=== PATIENT | female | born 1945 | race Caucasian/White ===

== ENCOUNTER 2017-03-07 07:42 | Inpatient (IN) | payer OTHER ==
[2017-03-07] VITALS (44 sets, daily range): BP systolic 73–117; BP diastolic 46–88
[~2017-03-07] VITALS: Ht 162.6 cm; Wt 51.3 kg
--- NOTE | ~2017-03-07 | HC ---
[facility] [place] [address] CONSULTATION Name: SERA MILNER Mike Room #: 438-P ADM IN M.R.#: [id number] Admission: 03/07/17 Attend Phys: Kailash Hale DO Discharge: Date of : 41 Report #: [id number] THIS REPORT FOR: //name// CC: CUONG Hale HISTORY OF PRESENT ILLNESS: A 71-year-old white woman transferred from [facility], where she presents with profound weakness, fever at 101.7, mild lactic acidosis, findings by CT scan compatible with pyelonephritis, and abnormal urinalysis compatible with pyelonephritis, significant leukocytosis present at that time. She is started on Zosyn and vancomycin and today's white blood cell count is better. She is improved. PAST MEDICAL HISTORY: History of hospitalizations at [facility] some 10 years ago with perforated bowel and peritonitis, requiring mechanical ventilation. She had exploratory laparotomy, drainage of abscess and temporary colostomy. Abdominal wall hernia repair. Recent right hip fracture, requiring open reduction and internal fixation. DRUG ALLERGIES: None listed. MEDICATIONS: The patient is currently on treatment with aspirin, levothyroxine, acetaminophen p.r.n., metformin, vancomycin 500 mg IV every 12 hours, Zosyn 3.375 g IV every 6 hours, insulin lispro per sliding scale, p.r.n. glucose and glucagon. SOCIAL HISTORY: , living at home with and daughter. No tobacco. No alcohol. FAMILY HISTORY: Noncontributory. REVIEW OF SYSTEMS: As above and see H and P. PHYSICAL EXAMINATION: GENERAL: Well-developed woman. VITAL SIGNS: Temperature at [place] counted at 101.7, here 98.2; pulse 62; BP 81/50; respirations 12. HEENMT: Within range. NECK: Supple. LUNGS: Clear. HEART: S1, S2. No gallop or murmur. BREASTS: Deferred. ABDOMEN: Multiple surgical scars, soft, no masses or megaly. PELVIC AND RECTAL: Deferred. EXTREMITIES: No clubbing, cyanosis. [facility] [address] [place] [address] CONSULTATION Name: SERA MILNER Room #: 438-P ADM IN M.R.#: [id number] Admission: 03/07/17 Attend Phys: Kailash Hale DO Discharge: Date of : 41 Report #: [id number] LABORATORY DATA: At [facility] CT scan of abdomen and pelvis revealed no pulmonary embolism, pulmonary nodular densities, gallstones, cystic changes both lungs and some stranding of left kidney and maybe pyelonephritis. Cultures are all pending at the time of this dictation. Sodium 133, potassium 3.7, CO2 26 today, BUN 12, creatinine 0.6, glucose 107. On admission, WBC 20,800; hemoglobin 9 g/dL; platelets 253,000. White blood cell count differential revealed 10% bands, 80% neutrophils. Repeat white blood cell count today is 9300; hemoglobin 8.4 g/dL; platelets 217,000. White blood cell count differential reveals 77% neutrophils. Urinalysis compatible with acute urinary tract infection with positive nitrite, pyuria and bacteriuria. Cultures are pending. ASSESSMENT: 1. Acute pyelonephritis. 2. Anemia, undetermined etiology. 3. History of extensive abdominal surgical procedure for perforated colon and intraabdominal abscess with of colostomy. 4. Hypothyroidism. 5. Diabetes mellitus. SUGGESTIONS: Recommend continue treatment with Zosyn, possibly we will discontinue vancomycin shortly, check culture result at [facility]. Dr. Hale, thank you for requesting my suggestions in the care of your patient. <ELECTRONICALLY SIGNED> By: Yossi Redding MD 03/09/17 1315 [id number] Yossi Redding MD /nt
[2017-03-07] MEDS ORDERED: PACERONE 200 M200 M1 PO (08:58)
[2017-03-07] MEDS ORDERED: ASPIR 8181 MG PO (08:59)
[2017-03-07] MEDS ORDERED: BONIVA150 MG PO (09:00)
[2017-03-07] MEDS ORDERED: LISINOPRIL20 MG PO (09:00)
[2017-03-07] MEDS ORDERED: SYNTHROID25 MCG PO (09:00)
[2017-03-07] MEDS ORDERED: COREG6.25 MG PO (09:00)
[2017-03-07] MEDS ORDERED: LOVASTATIN 20 M20 MG PO (09:01)
[2017-03-07] MEDS ORDERED: MULTI-VITAMIN1 EAC5 PO (09:01)
[2017-03-07] MEDS ORDERED: ZANTAC 150MG T150 MG PO (09:02)
[2017-03-07] MEDS ORDERED: METFORMIN HCL500 MG PO (09:02)
[2017-03-07 10:13] LABS: HEMATOCRIT 27.8 % (37.0-47.0); MCH 26.7 pg (26.0-34.0); MCHC 32.5 g/dL (28.0-37.0); PLATELET COUNT 253 thou/uL (150-400); RBC 3.39 mil/uL (4.20-5.00); RDW 16.5 % (10.5-14.5); WBC 20.8 thou/uL (4.0-11.0)
[2017-03-07 10:14] LABS: MANUAL DIFF YES
[2017-03-07 10:28] LABS: CALCIUM 7.7 mg/dL (8.5-10.1); POTASSIUM 3.7 mmol/L (3.5-5.1)
[2017-03-07 10:53] LABS: ABSOLUTE NEUTROPHILS 18.7 thou/uL (1.4-8.2); PLATELET ESTIMATE NORMAL; TOTAL CELL COUNT 100
[2017-03-07 15:20] LABS: URINE BILIRUBIN NEGATIVE (Negative); URINE BLOOD NEGATIVE (Negative); URINE COLOR YELLOW; URINE GLUCOSE-RANDOM* NEGATIVE (Negative); URINE KETONES NEGATIVE (Negative); URINE PROTEIN (DIPSTICK) TRACE (Negative); URINE UROBILINOGEN 0.2 E.U./dl (0.2-1.0)
[2017-03-07 15:22] LABS: URINE LEUKOCYTES-REFLEX 1+ (Negative)
[2017-03-07 15:25] LABS: SQUAMOUS 4-10 Moderate /LPF (0-3)
[2017-03-07 15:26] LABS: CASTS None Seen /LPF (None Seen); CRYSTALS None Seen /LPF (None Seen); URINE RBC None Seen /HPF (0-2); URINE WBC-REFLEX 6-15 Few /HPF (0-5); WBC CLUMPS Few (None Seen)
[2017-03-08] VITALS (24 sets, daily range): BP systolic 91–152; BP diastolic 53–79
[2017-03-08 04:37] LABS: ABSOLUTE NEUTROPHILS 7.2 thou/uL (1.4-8.2); BASOPHILS 0.3 % (0.0-2.0); EOSINOPHILS 0.6 % (0.0-3.0); HEMATOCRIT 26.2 % (37.0-47.0); HEMOGLOBIN 8.4 gm/dL (12.0-15.0); MCH 26.4 pg (26.0-34.0); MCHC 31.9 g/dL (28.0-37.0); MCV 82.6 fL (80.0-100.0); MONOCYTES 8.4 % (1.0-8.0); PLATELET COUNT 217 thou/uL (150-400); POLYS 77.7 % (36.0-66.0); RBC 3.17 mil/uL (4.20-5.00); RDW 16.7 % (10.5-14.5); WBC 9.3 thou/uL (4.0-11.0)
[2017-03-08 04:45] LABS: MANUAL DIFF NO
[2017-03-08 04:50] LABS: CALCIUM 7.9 mg/dL (8.5-10.1); CREATININE 0.6 mg/dL (0.6-1.0); POTASSIUM 3.4 mmol/L (3.5-5.1)
[2017-03-09 04:10] VITALS: BP 151/73
[2017-03-09 06:21] LABS: ABSOLUTE NEUTROPHILS 5.2 thou/uL (1.4-8.2); BASOPHILS 0.4 % (0.0-2.0); EOSINOPHILS 1.3 % (0.0-3.0); HEMATOCRIT 31.8 % (37.0-47.0); HEMOGLOBIN 10.3 gm/dL (12.0-15.0); LYMPHOCYTES 17.5 % (24.0-44.0); MCH 26.4 pg (26.0-34.0); MCHC 32.3 g/dL (28.0-37.0); MCV 81.7 fL (80.0-100.0); MONOCYTES 9.5 % (1.0-8.0); PLATELET COUNT 271 thou/uL (150-400); POLYS 71.3 % (36.0-66.0); RBC 3.89 mil/uL (4.20-5.00); RDW 16.5 % (10.5-14.5); WBC 7.3 thou/uL (4.0-11.0)
[2017-03-09 06:28] LABS: CALCIUM 8.6 mg/dL (8.5-10.1); CREATININE 0.5 mg/dL (0.6-1.0); POTASSIUM 3.3 mmol/L (3.5-5.1)
[2017-03-09 06:40] LABS: MANUAL DIFF NO
[2017-03-09 08:00] VITALS: BP 157/84
[2017-03-09] MEDS ORDERED: CIPRO500 M1 PO (08:23)
[2017-03-09] MEDS ORDERED: BACTRIM DS TAB1 EACH PO ×2 (10:17→10:18)
[2017-03-09 10:54] VITALS: BP 157/84
== END 2017-03-09 13:27 | disposition home or self-care (01) | DRG 871 ==
LOC: ICU 07:42 → 4S 08:44 → ICU 08:44 → 4S 03-08 11:15 → ENTRNSPT 03-09 13:15 → EDTRNSPTSTS 03-09 13:19 → 4S 03-09 13:27
PROVIDERS: Family Medicine
DX: A41.9 Sepsis, unspecified organism (principal); N17.1 Acute kidney failure with acute cortical necrosis; N10 Acute pyelonephritis; D64.9 Anemia, unspecified; E03.9 Hypothyroidism, unspecified; E11.9 Type 2 diabetes mellitus without complications; I95.9 Hypotension, unspecified; E78.00 Pure hypercholesterolemia, unspecified; I10 Essential (primary) hypertension; B96.20 Unspecified Escherichia coli [E. coli] as the cause of diseases classified elsewhere; Z93.3 Colostomy status; Z91.018 Allergy to other foods; Z91.011 Allergy to milk products; Z79.4 Long term (current) use of insulin
CPT/HCPCS: 10078; 10100